=== PATIENT | male | born 1990 | race African-American/Black ===

== ENCOUNTER 2017-06-20 01:55 | Inpatient (IN) | payer OTHER ==
--- NOTE | 2017-06-20 02:37 | HP ---
COWS - Scale Resting Pulse: 1= [place] 81-100 Sweatin= Chills/Flushing Restless Observation: 1= Difficult to Sit Still Pupil Size: 1= Pupils >than Normal Bone or Joint Aches: 2= Severe Diffuse Aches Runny Nose/ Eye Tearin= Runny Nose/Eyes GI Upset > 30mins: 1= Stomach Cramp Tremor Observation: 1= Tremor [place], Not Seen Yawning Observation: 1= 1-2x During Session Anxiety or Irritability: 1=Feels Anxious/Irritable Goose Flesh Skin: 3=Piloerection COWS Score: 15 Admission ROS S - HPI Chief Complaint: WITHDRAWAL SYMPTOMS Allergies/Adverse Reactions: Allergies Allergy/AdvReac Type Severity Reaction Status Date / Time No Known Allergies Allergy Verified 02/17/16 01:37 History of Present Illness: 27 Y.O. MAN WITH AN EXTENSIVE HISTORY OF OPIATE DEPENDENCE IS HERE SEEKING DETOX. HE WAS LAST HERE ON 01/2016 FOR DETOX. HE REPORTS HIS LONGEST PERIOD CLEAN HAS BEEN 1 YEAR. Exam Limitations: No Limitations - Review of Systems Constitutional: Chills, Loss of Appetite, Unintentional Wgt. Loss EENT: reports: Tearing, Nose Congestion Respiratory: reports: Cough Cardiac: reports: No Symptoms Reported GI: reports: Diarrhea : reports: No Symptoms Reported Musculoskeletal: reports: Back Pain, Joint Pain Integumentary: reports: No Symptoms Reported Neuro: reports: Headache Endocrine: reports: No Symptoms Reported Hematology: reports: No Symptoms Reported Psychiatric: reports: Judgement Intact, Mood/Affect Appropiate, Orientated x3 Other Systems: Reviewed and Negative Patient History - Patient Medical History Hx Anemia: No Hx Asthma: No Hx Chronic Obstructive Pulmonary Disease (COPD): No Hx Cancer: No Hx Cardiac Disorders: No Hx Congestive Heart Failure: No Hx Hypertension: No Hx Hypercholesterolemia: No Hx Pacemaker: No HX Cerebrovascular Accident: No Hx Seizures: Yes Hx Dementia: No Hx Diabetes: No Hx Gastrointestinal Disorders: No Hx Liver Disease: No Hx Genitourinary Disorders: No Hx Sexually Transmitted Disorders: No Hx Renal Disease (ESRD): No Hx Thyroid Disease: No Hx Human Immunodeficiency Virus (HIV): No Hx Hepatitis C: No Hx Depression: Yes Hx Suicide Attempt: No Hx Bipolar Disorder: No Hx Schizophrenia: No - Patient Surgical History Past Surgical History: Yes Other Surgical History: ON RT. LEG - 16 YRS. AGO - PPD History Previous Implant?: Yes Date: 02/20/16 PPD to be Administered?: Yes - Reproductive History Patient is a Female of Child Bearing Age (11 -55 yrs old): No - Smoking Cessation Smoking history: Current every day smoker Have you smoked in the past 12 months: Yes Aproximately how many cigarettes per day: 20 Hx Chewing Tobacco Use: No Initiated information on smoking cessation: Yes 'Breaking Loose' booklet given: 06/20/17 - Substance & Tx. History Hx Alcohol Use: No Hx Substance Use: Yes Substance Use Type: Cocaine, Heroin, Marijuana - Substances Abused Heroin Route: Injection Frequency: Daily Amount used: 6 Age of first use: 27 Date of Last Use: 06/19/17 Cocaine Route: Inhalation Frequency: 1-3 times last 30 days Amount used: $20 Age of first use: 25 Date of Last Use: 06/09/17 Marijuana/Hashish Route: Smoking Frequency: Daily Amount used: $30 Age of first use: 18 Date of Last Use: 06/19/17 Family Disease History - Family Disease History Family History: Denies Admission Physical Exam [facility] - Vital Signs Vital Signs: Last Vital Signs Temp Pulse Resp BP Pulse Ox 99.6 F 98 H 16 135/84 06/20/17 02:46 06/20/17 02:46 06/20/17 02:46 06/20/17 02:46 - Physical General Appearance: Yes: Disheveled, Anxious HEENTM: Yes: Hearing grossly Normal, Other Respiratory: Yes: Chest Non-Tender, Lungs Clear, Normal Breath Sounds, No Respiratory Distress, No Accessory Muscle Use Neck: Yes: No masses,lesions,Nodules Breast: Yes: Breast Exam Deferred Cardiology: Yes: Regular Rhythm, Regular Rate Abdominal: Yes: Normal Bowel Sounds, Non Tender Genitourinary: Yes: Other (NO COMPLAINTS REPORTED) Back: Yes: Normal Inspection Musculoskeletal: Yes: full range of Motion, Gait Steady Extremities: Yes: Normal Capillary Refill, Normal Inspection, Normal Range of Motion, Non-Tender 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 NML intact, Motor Strength 5/5, Normal Mood/Affect , Normal Response Integumentary: Yes: Normal Color, Dry, Warm Lymphatic: Yes: Within Normal Limits - Diagnostic (1) Opioid dependence with withdrawal Current Visit: Yes Status: Chronic (2) Cocaine dependence, uncomplicated Current Visit: Yes Status: Chronic (3) Nicotine dependence Current Visit: Yes Status: Chronic Cleared for Admission [facility] - Detox or Rehab [facility] Level of Care: Medically Managed Detox Regimen/Protocol: Methadone [facility] Breath Alcohol Content Breath Alcohol Content: 0.009 Vital Signs - Vital Signs Vital Signs Refused: No Temperature: 99.6 F Temperature Source: Oral Pulse Rate: 98 Respiratory Rate: 16 Blood Pressure: 135/84 BP Location: Left Arm Blood Pressure Position: Sitting - Height Height: 5 ft 11 in - Weight Weight: 210 lb Weight Measurement Method: Stated by Patient Body Mass Index (BMI): 29.2 Urine Drug Screen - Control Is Test Valid: Yes - Results Drug Screen Negative: No Urine Drug Screen Results: THC-Marijuana, OPI-Opiates, BZO-Benzodiazepines
[2017-06-20 02:46] VITALS: BMI 29.2
[2017-06-20] MEDS ORDERED: LOPERAMIDE HCL 2 MG CAPSULE PO PRN (02:52)
[2017-06-20] MEDS ORDERED: P-EPHED 60MG/TRIPROLIDI 2.5MG TABLET PO PRN (02:52)
[2017-06-20] MEDS ORDERED: METHADONE HCL 10 MG TABLET (FOR DETOX USE ONLY) PO ONE ×3 (02:52→23:00)
[2017-06-20] MEDS ORDERED: MAGNESIUM CITRATE 300 ML BOTTLE PO PRN (02:52)
[2017-06-20] MEDS ORDERED: hydrOXYzine PAMOATE 50 MG CAPSULE (FP) PO PRN (02:52)
[2017-06-20] MEDS ORDERED: MAGNESIUM HYDROX 2400MG/30ML ORAL SUSPENSION 30 ML CUP PO PRN (02:52)
[2017-06-20] MEDS ORDERED: MAG HYDROX/AL HYDROX/SIMETH 30 ML UNIT-DOSE CUP PO PRN (02:52)
[2017-06-20] MEDS ORDERED: MENTHOL/PHENOL 1 EACH UD MM PRN (02:52)
[2017-06-20] MEDS ORDERED: ACETAMINOPHEN 325 MG TABLET (FP) PO PRN (02:52)
[2017-06-20] MEDS ORDERED: diphenhydrAMINE HCL 50 MG CAPSULE PO PRN (02:52)
[2017-06-20] MEDS ORDERED: guaiFENesin/D-METHORPHAN HB 10 ML UNIT-DOSE CUPS PO PRN (02:52)
[2017-06-20] MEDS: diazePAM 5 MG TABLET PO PRN ×4 (03:46→22:05)
[2017-06-20] MEDS: IBUPROFEN 400 MG TABLET (FP) PO PRN (03:47)
[2017-06-20] MEDS: metroNIDAZOLE 250 MG TABLET PO SCH ×3 (07:13→23:12)
[2017-06-20] MEDS: PRENATAL VITAMINS W/ FOLIC ACID TABLET (FP) PO SCH (10:14)
[2017-06-20 11:27] LABS: HIV 1 & 2 AB NEGATIVE; HIV 1 AGp24 NEGATIVE
[2017-06-20] MEDS ORDERED: FLU VACCINE QUAD 60 MCG/0.5 ML (MDV 17-18) IM ONE (12:00)
--- NOTE | 2017-06-20 12:57 | PN ---
[facility] Progress Note Note: PATIENT WAS ADMITTED FOR OPIOID DEPENDENCE ON METHADONE REGIMEN HAD DENTAL IMPLANT ON ANTIBIOTICS SWELLING OF RIGHT FACIAL AREA VISION OK MOVEMENT OF EYE BALL NO LIMITATION EKG NSR,NORMAL ECG CONTINUE DETOX,AMOXICILLIN 500 MGS PO TID
[2017-06-20] MEDS: CYCLOBENZAPRINE HCL 10 MG TABLET (FP) PO SCH ×2 (13:09→22:06)
[2017-06-20] MEDS: AMOXICILLIN 500 MG CAPSULE (FP) PO SCH ×2 (14:22→22:05)
[2017-06-20 17:52] LABS: URINE APPEARANCE SLCLOUDY; URINE BILIRUBIN NEGATIVE (NEGATIVE); URINE BLOOD NEGATIVE (NEGATIVE); URINE COLOR DKYELLOW; URINE GLUCOSE (UA) NEGATIVE (NEGATIVE); URINE KETONE NEGATIVE (NEGATIVE); URINE LEUK ESTERASE NEGATIVE (NEGATIVE); URINE NITRITE NEGATIVE (NEGATIVE); URINE PROTEIN NEGATIVE (NEGATIVE); URINE UROBILINOGEN NEGATIVE mg/dL (0.2-1.0)
--- NOTE | 2017-06-20 20:44 | EKG ---
Test Reason : Blood Pressure : / mmHG Vent. Rate : 074 BPM Atrial Rate : 074 BPM P-R Int : 164 ms QRS Dur : 088 ms QT Int : 394 ms P-R-T Axes : 070 062 050 degrees QTc Int : 437 ms NORMAL SINUS RHYTHM NORMAL ECG NO PREVIOUS ECGS AVAILABLE Confirmed by PRESLEY TRAN MD ([id number]) on 06/20/2017 8:44:40 PM Referred By: Confirmed By:PRESLEY TRAN MD
[2017-06-20] MEDS ORDERED: THIAMINE HCL 100 MG TABLET (FP) PO SCH (22:00)
[2017-06-21] MEDS: CYCLOBENZAPRINE HCL 10 MG TABLET (FP) PO SCH (05:42)
[2017-06-21] MEDS: AMOXICILLIN 500 MG CAPSULE (FP) PO SCH (05:43)
[2017-06-21] MEDS: diazePAM 5 MG TABLET PO PRN ×2 (05:44→10:06)
[2017-06-21] MEDS: IBUPROFEN 400 MG TABLET (FP) PO PRN (05:45)
[2017-06-21] MEDS: metroNIDAZOLE 250 MG TABLET PO SCH (07:01)
--- NOTE | 2017-06-21 07:42 | CONSULT ---
[facility] Psychiatric Consult - Data Date of interview: 06/21/17 Admission source: [facility] Identifying data: Thisis 27 years old male with history of DAYAN, Depression, with nop psychiatric hospitalization history , intoxicated with: Acocaine, Cannabis, Heroin, Xanax and Nicotine, Substance Abuse History: Urine Drug Screen Results: THC-Marijuana, OPI-Opiates, BZO-Benzodiazepines. - Smoking Cessation. Smoking history: Current every day smoker. Have you smoked in the past 12 months: Yes. Aproximately how many cigarettes per day: 20. Hx Chewing Tobacco Use: No. Initiated information on smoking cessation: Yes. 'Breaking Loose' booklet given: 06/20/17. - Substance & Tx. History. Hx Alcohol Use: No. Hx Substance Use: Yes. Substance Use Type : Cocaine, Heroin, Marijuana. - Substances Abused. Heroin. Route: Injection. Frequency: Daily. Amount used: 6. Age of first use: 27. Date of Last Use: 06/19/17. Cocaine. Route: Inhalation. Frequency: 1-3 times last 30 days. Amount used: $20. Age of first use: 25. Date of Last Use: 06/09/17. Marijuana/Hashish. Route: Smoking. Frequency: Daily. Amount used: $30. Age of first use: 18. Date of Last Use: 06/19/17 Medical History: Seizure disorder Psychiatric History: Patient reprots history of DAYAN, and Depression, reports taking prior eder admission: no medications. As per computer having hitory taking Lexapro 10mg poqd Physical/Sexual Abuse/Trauma History: Denies Additional Comment: Observation. Detox Unit Care Protocol. Urine Drug Screen Results: THC-Marijuana, OPI-Opiates, BZO-Benzodiazepines Mental Status Exam - Mental Status Exam Alert and Oriented to: Person Cognitive Function: Fair Patient Appearance: Well Groomed Mood: Apprehensive Patient Behavior: Cooperative Speech Pattern: Appropriate Voice Loudness: Mildly Soft/Quiet Thought Process: Goal Oriented Thought Disorder: Being Controlled Hallucinations: Denies Suicidal Ideation: Denies Homicidal Ideation: Denies Insight/Judgement: Fair Sleep: Difficulty falling asleep Appetite: Weight gain Muscle strength/Tone: Normal Gait/Station: Normal Additional Comments: Observation. Detox Unit Care Protocol Psychiatric Findings - Problem List ([place] 1, 2,3) (1) Cocaine dependence, uncomplicated Current Visit: Yes Status: Chronic (2) Nicotine dependence Current Visit: Yes Status: Chronic (3) Opioid dependence with withdrawal Current Visit: Yes Status: Chronic (4) DAYAN (generalized anxiety disorder) Current Visit: No Status: Acute (5) Sedative, hypnotic or anxiolytic dependence with withdrawal, uncomplicated Current Visit: No Status: Acute (6) Benzodiazepine dependence Current Visit: No Status: Chronic (7) Cannabis dependence Current Visit: No Status: Chronic (8) Heroin dependence Current Visit: No Status: Chronic (9) Opioid dependence Current Visit: No Status: Chronic Qualifiers: Substance use status: uncomplicated Qualified Code(s): F11.20 - Opioid dependence, uncomplicated; F11.20 - Opioid dependence, uncomplicated; F11.20 - Opioid dependence, uncomplicated (10) Panic attacks Current Visit: Yes Status: Acute - Initial Treatment Plan Initial Treatment Plan: Observation. Detox Unit Care Protocol
[2017-06-21 09:31] VITALS: BP 120/68; PULSE 66; TEMP 97.5
[2017-06-21] MEDS ORDERED: METHADONE HCL 10 MG TABLET (FOR DETOX USE ONLY) PO ONE (10:00)
[2017-06-21] MEDS: PRENATAL VITAMINS W/ FOLIC ACID TABLET (FP) PO SCH (10:06)
[2017-06-21 10:08] LABS: MCH 27.9 pg (25.7-33.7); MCHC 33.4 g/dl (32.0-35.9); MEAN CELL VOLUME 83.4 fl (80-96); MEAN PLT VOLUME 9.5 fl (7.5-11.1); PLATELET COUNT 203 K/MM3 (134-434); RDW 12.6 % (11.9-15.9); WHITE BLOOD COUNT 9.1 K/mm3 (4.0-10.0)
[2017-06-21 10:23] LABS: ALBUMIN 3.6 g/dl (3.4-5.0); ALK PHOS 73 U/L (45-117); ANION GAP 9 (8-16); BILIRUBIN,TOTAL 0.7 mg/dL (0.2-1.0); CALCIUM 8.9 mg/dL (8.5-10.1); CO2 30 mmol/L (21-32); CREATININE 0.9 mg/dL (0.7-1.3); GLUCOSE,RANDOM 83 mg/dL (74-106); SGOT/AST 18 U/L (15-37); SGPT/ALT 33 U/L (12-78); TOT PROT 6.9 g/dl (6.4-8.2)
--- NOTE | 2017-06-21 10:45 | PN ---
S COWS - Scale Resting Pulse: 0= [place] 80 or Below Sweatin=Flushed/Facial Moisture Restless Observation: 1= Difficult to Sit Still Pupil Size: 0= Normal to Room Light Bone or Joint Aches: 2= Severe Diffuse Aches Runny Nose/ Eye Tearin= Nasal Congestion GI Upset > 30mins: 0= None Tremor Observation of Outstretched Hands: 1= Tremor [place], Not Seen Yawning Observation: 2= >3x During Session Anxiety or Irritability: 2=Irritable/Anxious Goose Flesh Skin: 3=Piloerection COWS Score: 14 [facility] Progress Note (SOAP) Subjective: irritable agitation anxiety sweats interrupted sleep Objective: 06/21/17 10:41 Vital Signs Temperature 97.5 F L 06/21/17 09:31 Pulse Rate 66 06/21/17 09:31 Respiratory Rate 18 06/21/17 09:31 Blood Pressure 120/68 06/21/17 09:31 O2 Sat by Pulse Oximetry (%) Laboratory Tests 06/20/17 06/20/17 06/21/17 08:00 17:00 06:15 WBC 9.1 RBC 4.77 Hgb 13.3 Hct 39.8 MCV 83.4 MCH 27.9 MCHC 33.4 RDW 12.6 Plt Count 203 MPV 9.5 Sodium Potassium Chloride Carbon Dioxide Anion Gap BUN Creatinine Creat Clearance w eGFR Random Glucose Calcium Total Bilirubin AST ALT Alkaline Phosphatase Total Protein Albumin Urine Color Dkyellow Urine Appearance Slcloudy Urine pH 5.0 D Ur Specific [place] 1.025 Urine Protein Negative Urine Glucose (UA) Negative Urine Ketones Negative Urine Blood Negative Urine Nitrite Negative Urine Bilirubin Negative Urine Urobilinogen Negative HIV 1&2 Antibody Screen Negative HIV P24 Antigen Negative 06/21/17 06:15 WBC RBC Hgb Hct MCV MCH MCHC RDW Plt Count MPV Sodium 138 Potassium 4.1 Chloride 99 Carbon Dioxide 30 Anion Gap 9 BUN 12 D Creatinine 0.9 Creat Clearance w eGFR > 60 Random Glucose 83 Calcium 8.9 Total Bilirubin 0.7 D AST 18 D ALT 33 D Alkaline Phosphatase 73 Total Protein 6.9 Albumin 3.6 Urine Color Urine Appearance Urine pH Ur Specific [place] Urine Protein Urine Glucose (UA) Urine Ketones Urine Blood Urine Nitrite Urine Bilirubin Urine Urobilinogen HIV 1&2 Antibody Screen HIV P24 Antigen aaox3 ambulating no acute distress Assessment: 06/21/17 10:41 withdrawal sx Plan: continue detox increase fluids continue ABX as ordered
--- NOTE | 2017-06-21 11:49 | PN ---
[facility] Progress Note Note: pt states he has an appt with his dentist for implant; signed out AMA. pt refused to stay and complete detox. pt states he feels fine. no s/s of withdrawals at this time. pt received his detox medication prior to wanting to leave.
--- NOTE | 2017-06-21 11:51 | DS ---
[facility] Detox Discharge Summary Admission Date: 06/20/17 - History Present History: Cannabis Dependence, Cocaine Dependence, Opioid Dependence, Sedative Dependence - Physical Exam Results Vital Signs: Vital Signs Temperature 97.5 F L 06/21/17 09:31 Pulse Rate 66 06/21/17 09:31 Respiratory Rate 18 06/21/17 09:31 Blood Pressure 120/68 06/21/17 09:31 O2 Sat by Pulse Oximetry (%) - Treatment Hospital Course: Responded well, Discharged Condition Good - Medication Discharge Medications: Ambulatory Orders Escitalopram Oxalate [Lexapro -] 10 mg PO DAILY #30 tablet 02/17/16 - Diagnosis (1) Dental abscess Current Visit: Yes Status: Acute (2) Panic attacks Current Visit: Yes Status: Suspected (3) Cocaine dependence, uncomplicated Current Visit: Yes Status: Chronic (4) Nicotine dependence Current Visit: Yes Status: Chronic Qualifiers: Nicotine product type: cigarettes Substance use status: uncomplicated Qualified Code(s): F17.210 - Nicotine dependence, cigarettes, uncomplicated; F17.210 - Nicotine dependence, cigarettes, uncomplicated (5) Opioid dependence with withdrawal Current Visit: Yes Status: Chronic (6) DAYAN (generalized anxiety disorder) Current Visit: No Status: Acute (7) Sedative, hypnotic or anxiolytic dependence with withdrawal, uncomplicated Current Visit: Yes Status: Chronic (8) Cannabis dependence Current Visit: Yes Status: Chronic (9) Depression Current Visit: No Status: Chronic Qualifiers: Major depression episode severity: unspecified (10) Insomnia Current Visit: No Status: Chronic Qualifiers: Insomnia type: unspecified Qualified Code(s): G47.00 - Insomnia, unspecified; G47.00 - Insomnia, unspecified (11) Opioid dependence Current Visit: No Status: Chronic Qualifiers: Substance use status: uncomplicated Qualified Code(s): F11.20 - Opioid dependence, uncomplicated; F11.20 - Opioid dependence, uncomplicated; F11.20 - Opioid dependence, uncomplicated - AMA Did Patient Leave Against Medical Advice: Yes (i need to go to my dentist)
[2017-06-21] MEDS ORDERED: QUEtiapine FUMARATE 100 MG TABLET (FP) PO SCH (22:00)
[2017-06-21] MEDS ORDERED: MIRTAZAPINE 15 MG TABLET (FP) PO SCH (22:00)
[2017-06-22] MEDS ORDERED: METHADONE HCL 5 MG TABLET (FOR DETOX USE ONLY) PO ONE (10:00)
[2017-06-23] MEDS ORDERED: METHADONE HCL 5 MG TABLET (FOR DETOX USE ONLY) PO ONE (10:00)
[2017-06-24] MEDS ORDERED: METHADONE HCL 10 MG TABLET (FOR DETOX USE ONLY) PO ONE (10:00)
[2017-06-25] MEDS ORDERED: METHADONE HCL 5 MG TABLET (FOR DETOX USE ONLY) PO ONE (06:00)
== END 2017-06-21 11:48 | disposition left against medical advice (07) | DRG 770 ==
LOC: YASAS 01:55 → Y6N 02:00
PROVIDERS: ADMIT Internal Medicine; ATTEND Internal Medicine Addiction Medicine
PROC: HZ2ZZZZ Detoxification Services for Substance Abuse Treatment (ICD-10-PCS; principal; 2017-06-20)
DX: F11.23 Opioid dependence with withdrawal (principal); F13.230 Sedative, hypnotic or anxiolytic dependence with withdrawal, uncomplicated; F14.20 Cocaine dependence, uncomplicated; F12.20 Cannabis dependence, uncomplicated; F17.210 Nicotine dependence, cigarettes, uncomplicated; F41.0 Panic disorder [episodic paroxysmal anxiety]; F41.1 Generalized anxiety disorder; F32.9 Major depressive disorder, single episode, unspecified; G47.00 Insomnia, unspecified; K04.7 Periapical abscess without sinus; Z86.69 Personal history of other diseases of the nervous system and sense organs
CPT/HCPCS: 36415; 80053; 81003; 85027; 86593; 86803; 87389; 90688; 93005; 93010; G0008

== ENCOUNTER 2017-10-20 20:16 | Inpatient (IN) | payer OTHER ==
[2017-10-20 23:49] VITALS: BMI 28.5
--- NOTE | 2017-10-21 00:24 | HP ---
COWS - Scale Resting Pulse: 1= [place] 81-100 Sweatin=Flushed/Facial Moisture Restless Observation: 1= Difficult to Sit Still Pupil Size: 1= Pupils >than Normal Bone or Joint Aches: 4=Acute Joint/Muscle Pain Runny Nose/ Eye Tearin= Runny Nose/Eyes GI Upset > 30mins: 1= Stomach Cramp Tremor Observation: 2= Slight Tremor Visible Yawning Observation: 1= 1-2x During Session Anxiety or Irritability: 4=Extreme Anxiety Goose Flesh Skin: 0=Smooth Skin COWS Score: 19 Admission ROS S - [facility] Chief Complaint: Opioid withdrawal symptoms Allergies/Adverse Reactions: Allergies Allergy/AdvReac Type Severity Reaction Status Date / Time No Known Allergies Allergy Verified 10/21/17 01:01 History of Present Illness: 27 years old with a 5 years history of heroin dependency is admitted to detox. Patient has been admitted to detox twice in [facility] and left AMA in previous admissions. He reports insignificant period of sobriety. Patient has past medical history of seizures and denies suicidal ideation at this time. Exam Limitations: No Limitations - Ebola screening Have you traveled outside of the country in the last 21 days: No Have you had contact with anyone from an Ebola affected area: No Have you been sick,other than usual withdrawal symptoms: No Do you have a fever: No - Review of Systems Constitutional: Chills, Loss of Appetite, Malaise, Night Sweats, Changes in sleep EENT: reports: Nose Congestion, Sinus Pressure Respiratory: reports: No Symptoms reported Cardiac: reports: No Symptoms Reported GI: reports: Nausea, Poor Appetite, Poor Fluid Intake, Abdominal cramping : reports: No Symptoms Reported Musculoskeletal: reports: Back Pain, Joint Pain, Muscle Pain, Muscle Weakness, Neck Pain Integumentary: reports: Flushing Neuro: reports: Headache, Tingling, Tremors Endocrine: reports: No Symptoms Reported Hematology: reports: No Symptoms Reported Psychiatric: reports: Mood/Affect Appropiate, Orientated x3, Agitated, Anxious Other Systems: Reviewed and Negative Patient History - Patient Medical History Hx Anemia: No Hx Asthma: No Hx Chronic Obstructive Pulmonary Disease (COPD): No Hx Cancer: No Hx Cardiac Disorders: No Hx Congestive Heart Failure: No Hx Hypertension: No Hx Hypercholesterolemia: No Hx Pacemaker: No HX Cerebrovascular Accident: No Hx Seizures: Yes Hx Dementia: No Hx Diabetes: No Hx Gastrointestinal Disorders: No Hx Liver Disease: No Hx Genitourinary Disorders: No Hx Sexually Transmitted Disorders: No Hx Renal Disease (ESRD): No Hx Thyroid Disease: No Hx Human Immunodeficiency Virus (HIV): No (Negative 2016) Hx Hepatitis C: No (Negative 2017) Hx Depression: No Hx Suicide Attempt: No (Denies suicidal ideation) Hx Bipolar Disorder: No Hx Schizophrenia: No - Patient Surgical History Past Surgical History: Yes Hx Neurologic Surgery: No Hx Cataract Extraction: No Hx Cardiac Surgery: No Hx Lung Surgery: No Hx Abdominal Surgery: No Hx Appendectomy: No Hx Cholecystectomy: No Hx Genitourinary Surgery: No Hx Orthopedic Surgery: Yes Other Surgical History: ON RT. LEG - 16 YRS. AGO Anesthesia Reaction: No - PPD History Previous Implant?: Yes Implanted On Prior [facility] Admission?: Yes Date: 06/22/17 (Not read. AMA) PPD to be Administered?: Yes - Reproductive History Patient is a Female of Child Bearing Age (11 -55 yrs old): No (MALE) - Smoking Cessation Smoking history: Current every day smoker Have you smoked in the past 12 months: Yes Aproximately how many cigarettes per day: 20 Hx Chewing Tobacco Use: No Initiated information on smoking cessation: Yes 'Breaking Loose' booklet given: 10/21/17 - Substance & Tx. History Hx Alcohol Use: No Hx Substance Use: Yes Substance Use Type: Cocaine, Heroin, Marijuana Hx Substance Use Treatment: Yes ([facility]) - Substances Abused Heroin Route: Injection Frequency: Daily Amount used: 10 bags Age of first use: 25 Date of Last Use: 10/20/17 Cocaine Route: Injection Frequency: Daily Amount used: $20 Age of first use: 22 Date of Last Use: 10/21/17 Family Disease History - Family Disease History Family History: Denies Admission Physical Exam [facility] - Vital Signs Vital Signs: Vital Signs - 24 hr 10/20/17 23:48 Temperature 98 F Pulse Rate 90 Respiratory 18 Rate Blood Pressure 110/70 - Physical General Appearance: Yes: Moderate Distress HEENTM: Yes: EOMI, Normal ENT Inspection, Normal Voice, WAQAS Respiratory: Yes: Lungs Clear, Normal Breath Sounds, No Respiratory Distress Neck: Yes: Supple Breast: Yes: Breast Exam Deferred Cardiology: Yes: Regular Rhythm, Regular Rate, S1, S2 Abdominal: Yes: Normal Bowel Sounds, Soft Genitourinary: Yes: Within Normal Limits Back: Yes: Normal Inspection Extremities: Yes: Tremors Neurological: Yes: Alert, Normal Mood/Affect, Normal Response Integumentary: Yes: Dry Lymphatic: Yes: Within Normal Limits - Diagnostic (1) Cannabis dependence Current Visit: Yes Status: Chronic (2) Nicotine dependence Current Visit: Yes Status: Chronic Qualifiers: Nicotine product type: cigarettes Substance use status: uncomplicated Qualified Code(s): F17.210 - Nicotine dependence, cigarettes, uncomplicated (3) Opioid dependence with withdrawal Current Visit: Yes Status: Chronic (4) Sedative, hypnotic or anxiolytic dependence with withdrawal, uncomplicated Current Visit: Yes Status: Chronic (5) Seizures Current Visit: Yes Status: Chronic Cleared for Admission [facility] - Detox or Rehab [facility] Level of Care: Medically Managed Detox Regimen/Protocol: Methadone/Valium [facility] Breath Alcohol Content Breath Alcohol Content: 0 Urine Drug Screen - Results Drug Screen Negative: No Urine Drug Screen Results: THC-Marijuana, MACY-Cocaine, OPI-Opiates, BZO- Benzodiazepines, OXY-Oxycodone
[2017-10-21] MEDS ORDERED: ACETAMINOPHEN 325 MG TABLET (FP) PO PRN (00:48)
[2017-10-21] MEDS ORDERED: P-EPHED 60MG/TRIPROLIDI 2.5MG TABLET PO PRN (00:48)
[2017-10-21] MEDS ORDERED: IBUPROFEN 400 MG TABLET (FP) PO PRN (00:48)
[2017-10-21] MEDS ORDERED: MENTHOL/PHENOL 1 EACH UD MM PRN (00:48)
[2017-10-21] MEDS ORDERED: LOPERAMIDE HCL 2 MG CAPSULE PO PRN (00:48)
[2017-10-21] MEDS ORDERED: guaiFENesin/D-METHORPHAN HB 10 ML UNIT-DOSE CUPS PO PRN (00:48)
[2017-10-21] MEDS ORDERED: MAG HYDROX/AL HYDROX/SIMETH 30 ML UNIT-DOSE CUP PO PRN (00:48)
[2017-10-21] MEDS ORDERED: diazePAM 5 MG TABLET PO ONE (00:48)
[2017-10-21] MEDS ORDERED: METHADONE HCL 10 MG TABLET (FOR DETOX USE ONLY) PO ONE ×3 (00:48→23:00)
[2017-10-21] MEDS ORDERED: MAGNESIUM HYDROX 2400MG/30ML ORAL SUSPENSION 30 ML CUP PO PRN (00:48)
[2017-10-21] MEDS ORDERED: diazePAM 5 MG TABLET PO PRN (00:48)
[2017-10-21] MEDS ORDERED: MAGNESIUM CITRATE 300 ML BOTTLE PO PRN (00:48)
[2017-10-21] MEDS ORDERED: NICOTINE POLACRILEX 2 MG GUM BC PRN (00:48)
[2017-10-21] MEDS: diazePAM 5 MG TABLET PO SCH ×2 (07:16→14:21)
[2017-10-21] MEDS ORDERED: PRENATAL VITAMINS W/ FOLIC ACID TABLET (FP) PO SCH (10:00)
[2017-10-21] MEDS ORDERED: NICOTINE 14 MG/24 HOURS TOPICAL PATCH TD SCH (10:00)
--- NOTE | 2017-10-21 12:33 | PN ---
S CIWA - CIWA Score Nausea/Vomitin-No Nausea/No Vomiting Muscle Tremors: 2 Anxiety: 3 Agitation: 2 Paroxysmal Sweats: 3 Orientation: 0-Oriented Tacttile Disturbances: 2-Mild Itch/Numbness/Burn Auditory Disturbances: 0-None Visual Disturbances: 2-Mild Sensitivity Headache: 3-Moderate CIWA-Ar Total Score: 17 [facility]HS COWS - Scale Resting Pulse: 1= [place] 81-100 Sweatin= Chills/Flushing Restless Observation: 1= Difficult to Sit Still Pupil Size: 0= Normal to Room Light Bone or Joint Aches: 0= None Runny Nose/ Eye Tearin= Nasal Congestion GI Upset > 30mins: 0= None Tremor Observation of Outstretched Hands: 2= Slight Tremor Visible Yawning Observation: 2= >3x During Session Anxiety or Irritability: 2=Irritable/Anxious Goose Flesh Skin: 3=Piloerection COWS Score: 13 [facility] Progress Note (SOAP) Subjective: Interrupted Sleep, Fatigue, H/A, Sweating. Objective: PT. A & O X 3, OBSERVED AMBULATING ON UNIT. NO ACUTE DISTRESS. 10/21/17 12:31 Vital Signs Temperature 99.0 F 10/21/17 11:08 Pulse Rate 87 10/21/17 11:08 Respiratory Rate 18 10/21/17 11:08 Blood Pressure 118/74 10/21/17 11:08 O2 Sat by Pulse Oximetry (%) ADMISSION LABS RESULTS PENDING. 10/21/17 12:32 Assessment: 10/21/17 12:32 WITHDRAWAL SYMPTOMS. Plan: CONTINUE DETOX. INCREASE DAILY PO FLUID INTAKE.
--- NOTE | 2017-10-21 14:54 | EKG ---
Test Reason : Blood Pressure : / mmHG Vent. Rate : 069 BPM Atrial Rate : 069 BPM P-R Int : 170 ms QRS Dur : 096 ms QT Int : 432 ms P-R-T Axes : 038 067 060 degrees QTc Int : 462 ms NORMAL SINUS RHYTHM NORMAL ECG WHEN COMPARED WITH ECG OF 20-JUN-2017 02:10, NO SIGNIFICANT CHANGE WAS FOUND Confirmed by ADAM WISE MD ([id number]) on 10/21/2017 2:53:48 PM Referred By: Confirmed By:ADAM WISE MD
[2017-10-21 17:33] VITALS: BP 114/65; PULSE 67; TEMP 98.4
--- NOTE | 2017-10-21 18:04 | PN ---
S Progress Note Note: daniel refusing to compelte detox as ordered at this time d/w nurse and counselor risk of not completing detox as ordered including overdose and . patient is signing out ama.
--- NOTE | 2017-10-21 18:07 | DS ---
[facility] Detox Discharge Summary Admission Date: 10/21/17 Discharge Date: 10/21/17 - History Present History: Cannabis Dependence, Cocaine Dependence, Opioid Dependence, Sedative Dependence Additional Comments: pateint refusing to stay signed out AMA after discussing risks with nursing and counseling staff, including overdose and Pertinent Past History: withdrawal sx, anxiety, depression, insomnia, seizures, nicotine dependence - Physical Exam Results Vital Signs: Vital Signs Temperature 98.4 F 10/21/17 17:33 Pulse Rate 67 10/21/17 17:33 Respiratory Rate 18 10/21/17 17:33 Blood Pressure 114/65 10/21/17 17:33 O2 Sat by Pulse Oximetry (%) patient refused labwork Pertinent Admission Physical Exam Findings: withdrawal sx - Treatment Hospital Course: Detox Protocol Followed Patient has Accepted a Rehab Referral to: no - Medication Discharge Medications: Ambulatory Orders NK [No Known Home Medication] 10/21/17 - Diagnosis (1) Opioid dependence with withdrawal Current Visit: Yes Status: Acute (2) Sedative, hypnotic or anxiolytic dependence with withdrawal, uncomplicated Current Visit: Yes Status: Acute (3) Cannabis dependence Current Visit: Yes Status: Chronic (4) Nicotine dependence Current Visit: Yes Status: Chronic Qualifiers: Nicotine product type: cigarettes Substance use status: uncomplicated Qualified Code(s): F17.210 - Nicotine dependence, cigarettes, uncomplicated (5) Seizures Current Visit: Yes Status: Chronic (6) Dental abscess Current Visit: No Status: Acute (7) Cocaine dependence, uncomplicated Current Visit: No Status: Chronic - AMA Did Patient Leave Against Medical Advice: Yes
[2017-10-21] MEDS ORDERED: THIAMINE HCL 100 MG TABLET (FP) PO SCH (22:00)
[2017-10-22] MEDS ORDERED: METHADONE HCL 10 MG TABLET (FOR DETOX USE ONLY) PO SCH (10:00)
[2017-10-23] MEDS ORDERED: METHADONE HCL 5 MG TABLET (FOR DETOX USE ONLY) PO SCH (10:00)
[2017-10-23] MEDS ORDERED: diazePAM 5 MG TABLET PO SCH (10:00)
[2017-10-25] MEDS ORDERED: diazePAM 5 MG TABLET PO SCH (10:00)
[2017-10-25] MEDS ORDERED: METHADONE HCL 10 MG TABLET (FOR DETOX USE ONLY) PO SCH (10:00)
[2017-10-26] MEDS ORDERED: METHADONE HCL 5 MG TABLET (FOR DETOX USE ONLY) PO SCH (06:00)
== END 2017-10-21 18:30 | disposition left against medical advice (07) | DRG 770 ==
LOC: YASAS 20:16 → Y3N 10-21 00:04
PROVIDERS: ADMIT Internal Medicine; ATTEND Internal Medicine
PROC: HZ2ZZZZ Detoxification Services for Substance Abuse Treatment (ICD-10-PCS; principal; 2017-10-21)
DX: F11.23 Opioid dependence with withdrawal (principal); F13.230 Sedative, hypnotic or anxiolytic dependence with withdrawal, uncomplicated; F14.20 Cocaine dependence, uncomplicated; F12.20 Cannabis dependence, uncomplicated; F17.210 Nicotine dependence, cigarettes, uncomplicated; G40.909 Epilepsy, unspecified, not intractable, without status epilepticus; K04.7 Periapical abscess without sinus
CPT/HCPCS: 36415; 86803; 93005; 93010

== ENCOUNTER 2018-02-15 15:45 | Inpatient (IN) | payer OTHER ==
[2018-02-15 19:10] VITALS: BMI 26.4
--- NOTE | 2018-02-15 21:27 | HP ---
COWS - Scale Resting Pulse: 0= [place] 80 or Below Sweatin=Flushed/Facial Moisture Restless Observation: 1= Difficult to Sit Still Pupil Size: 1= Pupils >than Normal Bone or Joint Aches: 1= Mild Discomfort Runny Nose/ Eye Tearin= Constantly Teary/Runny GI Upset > 30mins: 2= Nausea/Diarrhea Tremor Observation: 4= Gross Tremor/Twitching Yawning Observation: 2= >3x During Session Anxiety or Irritability: 2=Irritable/Anxious Goose Flesh Skin: 0=Smooth Skin COWS Score: 19 Admission ROS S - HPI Chief Complaint: C/O WITHDRAWAL SX'S FROM OPIOID DEPENDENCE. SEEKING DETOX. Allergies/Adverse Reactions: Allergies Allergy/AdvReac Type Severity Reaction Status Date / Time No Known Allergies Allergy Verified 10/21/17 01:01 History of Present Illness: 27 Y.O. MALE WITH LONG HX/O OPIOID AND COCAINE DEPENDENCE HERE FOR DETOX. CLIENT IS KNOWN TO THIS PROGRAM. SELF REFERRED. LAST 3 ADMISSIONS SIGNED OUT AMA WITHIN 24 HOURS. D/W CLIENT ABOUT COMPLIANCE AND COMPLETING TXMENT . CLIENT VERBALIZED UNDERSTANDING. REPORTS LONGEST LEAN TIME 2 MONTHS SELF SUSTAINED. PMHX: DENIES PSYCH: DENIES Exam Limitations: No Limitations - Ebola screening Have you traveled outside of the country in the last 21 days: No Have you had contact with anyone from an Ebola affected area: No Have you been sick,other than usual withdrawal symptoms: No Do you have a fever: No - Review of Systems Constitutional: Chills, Loss of Appetite, Night Sweats, Changes in sleep, Unintentional Wgt. Loss EENT: reports: Recent change in vision (WEARS CORRECTIVE LENSES), Nose Congestion (RUNNY NOSE) Respiratory: reports: No Symptoms reported Cardiac: reports: No Symptoms Reported GI: reports: Diarrhea, Poor Appetite, Poor Fluid Intake : reports: No Symptoms Reported Musculoskeletal: reports: Joint Pain Integumentary: reports: No Symptoms Reported Neuro: reports: Seizure (R/T DRUG WITHDRAWAL) Endocrine: reports: No Symptoms Reported Hematology: reports: No Symptoms Reported Psychiatric: reports: No Sypmtoms Reported Other Systems: Reviewed and Negative Patient History - Patient Medical History Hx Anemia: No Hx Asthma: No Hx Chronic Obstructive Pulmonary Disease (COPD): No Hx Cancer: No Hx Cardiac Disorders: No Hx Congestive Heart Failure: No Hx Hypertension: No Hx Hypercholesterolemia: No Hx Pacemaker: No HX Cerebrovascular Accident: No Hx Seizures: Yes (R/T DRUG WITHDRAWAL; LAST 3 YEARS AGO) Hx Dementia: No Hx Diabetes: No Hx Gastrointestinal Disorders: No Hx Liver Disease: No Hx Genitourinary Disorders: No Hx Sexually Transmitted Disorders: No Hx Renal Disease (ESRD): No Hx Thyroid Disease: No Hx Human Immunodeficiency Virus (HIV): No Hx Hepatitis C: No Hx Depression: No Hx Suicide Attempt: No Hx Bipolar Disorder: No Hx Schizophrenia: No Other Medical History: DENIES - Patient Surgical History Past Surgical History: Yes Hx Neurologic Surgery: No Hx Cataract Extraction: No Hx Cardiac Surgery: No Hx Lung Surgery: No Hx Breast Surgery: No Hx Breast Biopsy: No Hx Abdominal Surgery: No Hx Appendectomy: No Hx Cholecystectomy: No Hx Genitourinary Surgery: No Hx Section: No Hx Orthopedic Surgery: Yes Other Surgical History: ON RT. LEG - 16 YRS. AGO Anesthesia Reaction: No - PPD History Previous Implant?: Yes Documented Results: Negative w/proof Implanted On Prior [facility] Admission?: Yes Date: 06/22/17 ([place]) PPD to be Administered?: No - Smoking Cessation Smoking history: Current every day smoker Have you smoked in the past 12 months: Yes Aproximately how many cigarettes per day: 10 Cigars Per Day: 0 Hx Chewing Tobacco Use: No Initiated information on smoking cessation: Yes 'Breaking Loose' booklet given: 02/15/18 - Substance & Tx. History Hx Alcohol Use: No Hx Substance Use: Yes Substance Use Type: Cocaine, Heroin, Marijuana Hx Substance Use Treatment: Yes ([facility]) - Substances Abused HEROIN Route: Injection Frequency: Daily Amount used: 10 BAGS Age of first use: 26 Date of Last Use: 02/14/18 COCAINE Route: Injection Frequency: 1-2 times per week Amount used: 1 GM Age of first use: 26 Date of Last Use: 02/11/18 THC Route: Smoking Frequency: 3-6 times per week Amount used: 20 BAG Age of first use: 15 Date of Last Use: 02/12/18 Family Disease History - Family Disease History Family History: Denies Admission Physical Exam BHS - Vital Signs Vital Signs: Vital Signs - 24 hr 02/15/18 18:56 Temperature 98.5 F Pulse Rate 76 Respiratory 18 Rate Blood Pressure 143/62 - Physical General Appearance: Yes: Appropriately Dressed, Moderate Distress, Tremorous HEENTM: Yes: EOMI, Normocephalic, Normal Voice, WAQAS, Pharynx Normal, Other ( POOE DENTITION MISSING TOP TEETH) Respiratory: Yes: Chest Non-Tender, Lungs Clear, Normal Breath Sounds, No Respiratory Distress, No Accessory Muscle Use Neck: Yes: No masses,lesions,Nodules, Supple, Trachea in good position Breast: Yes: Breast Exam Deferred Cardiology: Yes: Regular Rhythm, Regular Rate, S1, S2 Abdominal: Yes: Normal Bowel Sounds, Non Tender, Soft Genitourinary: Yes: Within Normal Limits (NO C/O) Back: Yes: Normal Inspection Musculoskeletal: Yes: full range of Motion, Gait Steady Extremities: Yes: Normal Capillary Refill, Normal Range of Motion, Non-Tender, Tremors, Pedal Edema (BLE 1 PLUS EDEMA) Neurological: Yes: Alert, Motor Strength 5/5 Integumentary: Yes: Normal Color, Warm, Track Head Lymphatic: Yes: Within Normal Limits - Diagnostic (1) Drug withdrawal seizure Current Visit: Yes Status: Suspected Qualifiers: Complication of substance-induced condition: with unspecified complication Qualified Code(s): F19.239 - Other psychoactive substance dependence with withdrawal, unspecified; R56.9 - Unspecified convulsions (2) Edema, lower extremity Current Visit: Yes Status: Acute (3) Opioid dependence with withdrawal Current Visit: Yes Status: Acute (4) Cannabis dependence Current Visit: Yes Status: Chronic (5) Cocaine dependence, uncomplicated Current Visit: Yes Status: Chronic (6) Depression Current Visit: Yes Status: Suspected Qualifiers: Major depression episode severity: unspecified (7) Insomnia Current Visit: Yes Status: Suspected Qualifiers: Insomnia type: unspecified Qualified Code(s): G47.00 - Insomnia, unspecified (8) Nicotine dependence Current Visit: Yes Status: Chronic Qualifiers: Nicotine product type: cigarettes Substance use status: uncomplicated Qualified Code(s): F17.210 - Nicotine dependence, cigarettes, uncomplicated Cleared for Admission S - Detox or Rehab [facility] Level of Care: Medically Managed Detox Regimen/Protocol: Methadone Claeared for Rehab Admission: No S Breath Alcohol Content Breath Alcohol Content: 0 Urine Drug Screen - Results Drug Screen Negative: No Urine Drug Screen Results: THC-Marijuana, MACY-Cocaine, OPI-Opiates, OXY- Oxycodone
[2018-02-15] MEDS ORDERED: ACETAMINOPHEN 325 MG TABLET (FP) PO PRN (21:31)
[2018-02-15] MEDS ORDERED: P-EPHED 60MG/TRIPROLIDI 2.5MG TABLET PO PRN (21:31)
[2018-02-15] MEDS ORDERED: guaiFENesin/D-METHORPHAN HB 10 ML UNIT-DOSE CUPS PO PRN (21:31)
[2018-02-15] MEDS ORDERED: IBUPROFEN 400 MG TABLET (FP) PO PRN (21:31)
[2018-02-15] MEDS ORDERED: MENTHOL/PHENOL 1 EACH UD MM PRN (21:31)
[2018-02-15] MEDS ORDERED: LOPERAMIDE HCL 2 MG CAPSULE PO PRN (21:31)
[2018-02-15] MEDS ORDERED: MAG HYDROX/AL HYDROX/SIMETH 30 ML UNIT-DOSE CUP PO PRN (21:31)
[2018-02-15] MEDS ORDERED: hydrOXYzine PAMOATE 50 MG CAPSULE (FP) PO PRN (21:31)
[2018-02-15] MEDS ORDERED: MAGNESIUM CITRATE 300 ML BOTTLE PO PRN (21:31)
[2018-02-15] MEDS ORDERED: MAGNESIUM HYDROX 2400MG/30ML ORAL SUSPENSION 30 ML CUP PO PRN (21:31)
[2018-02-15] MEDS ORDERED: METHADONE HCL 10 MG TABLET (FOR DETOX USE ONLY) PO ONE ×2 (21:45→23:00)
[2018-02-16] MEDS: diazePAM 5 MG TABLET PO PRN ×4 (00:47→22:24)
[2018-02-16] MEDS: THIAMINE HCL 100 MG TABLET (FP) PO SCH ×2 (00:59→22:24)
[2018-02-16 06:55] LABS: URINE APPEARANCE SLCLOUDY; URINE BILIRUBIN NEGATIVE (<2.0 mg/dL); URINE COLOR AMBER; URINE GLUCOSE (UA) NEGATIVE (NEGATIVE); URINE KETONE NEGATIVE (NEGATIVE); URINE LEUK ESTERASE NEGATIVE (NEGATIVE); URINE NITRITE NEGATIVE (NEGATIVE); URINE PROTEIN NEGATIVE (NEGATIVE)
[2018-02-16] MEDS ORDERED: METHADONE HCL 10 MG TABLET (FOR DETOX USE ONLY) PO ONE (10:00)
--- NOTE | 2018-02-16 10:24 | CONSULT ---
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 Patient with hiustory of multiple AMA discharges. Substance Abuse History: - Smoking Cessation. Smoking history: Current every day smoker. Have you smoked in the past 12 months: Yes. Aproximately how many cigarettes per day: 10. Cigars Per Day: 0. Hx Chewing Tobacco Use: No. Initiated information on smoking cessation: Yes. 'Breaking Loose' booklet given : 02/15/18. - Substance & Tx. History. Hx Alcohol Use: No. Hx Substance Use: Yes. Substance Use Type: Cocaine, Heroin, Marijuana. Hx Substance Use Treatment: Yes ([facility]). - Substances Abused. HEROIN. Route: Injection. Frequency: Daily. Amount used: 10 BAGS. Age of first use: 26. Date of Last Use: 02/14/18. COCAINE. Route: Injection. Frequency: 1-2 times per week. Amount used: 1 GM. Age of first use: 26. Date of Last Use: 02/11/18. THC. Route: Smoking. Frequency: 3-6 times per week. Amount used: 20 BAG. Age of first use: 15. Date of Last Use: 02/12/18 Medical History: Denies significant medical issues Psychiatric History: DAYAN, Panic disorder, Anxiety issues. Reports no medications taking prior to admission Physical/Sexual Abuse/Trauma History: Denies Additional Comment: Observation. Detox Unit Care Protocol Mental Status Exam - Mental Status Exam Alert and Oriented to: Person Cognitive Function: Fair Patient Appearance: Unkempt Mood: Anxious Affect: Mood Congruent Patient Behavior: Cooperative Speech Pattern: Appropriate Voice Loudness: Normal Thought Process: Goal Oriented Thought Disorder: Being Controlled Hallucinations: Denies Suicidal Ideation: Denies Homicidal Ideation: Denies Insight/Judgement: Fair Sleep: Difficulty falling asleep Appetite: Fair Muscle strength/Tone: Normal Gait/Station: Normal Additional Comments: Observation. Detox Unit Care Protocol Psychiatric Findings - Problem List ([place] 1, 2,3) (1) Opioid dependence with withdrawal Current Visit: Yes Status: Acute (2) Cannabis dependence Current Visit: Yes Status: Chronic (3) Cocaine dependence, uncomplicated Current Visit: Yes Status: Chronic (4) Nicotine dependence Current Visit: Yes Status: Chronic Qualifiers: Nicotine product type: cigarettes Substance use status: uncomplicated Qualified Code(s): F17.210 - Nicotine dependence, cigarettes, uncomplicated (5) Drug withdrawal seizure Current Visit: Yes Status: Suspected Qualifiers: Complication of substance-induced condition: with unspecified complication Qualified Code(s): F19.239 - Other psychoactive substance dependence with withdrawal, unspecified; R56.9 - Unspecified convulsions (6) DAYAN (generalized anxiety disorder) Current Visit: No Status: Acute (7) Opioid dependence Current Visit: No Status: Chronic Qualifiers: Substance use status: uncomplicated Qualified Code(s): F11.20 - Opioid dependence, uncomplicated (8) Panic attacks Current Visit: No Status: Suspected - Initial Treatment Plan Initial Treatment Plan: Observation. Detox Unit Care Protocol
[2018-02-16 10:41] LABS: HEMATOCRIT 37.9 % (35.4-49); HEMOGLOBIN 12.6 GM/dL (11.7-16.9); MCHC 33.2 g/dl (32.0-35.9); MEAN CELL VOLUME 81.3 fl (80-96); PLATELET COUNT 259 K/MM3 (134-434); RBC 4.65 M/mm3 (4.00-5.60); RDW 13.6 % (11.9-15.9); WHITE BLOOD COUNT 7.2 K/mm3 (4.0-10.0)
[2018-02-16] MEDS: PRENATAL VITAMINS W/ FOLIC ACID TABLET (FP) PO SCH (10:44)
[2018-02-16 10:45] LABS: ALBUMIN 3.2 g/dl (3.4-5.0); ANION GAP 7 (8-16); BLOOD UREA NITROGEN 10 mg/dL (7-18); CALCIUM 8.8 mg/dL (8.5-10.1); CHLORIDE 106 mmol/L (98-107); CO2 29 mmol/L (21-32); GLUCOSE,RANDOM 87 mg/dL (74-106); POTASSIUM 4.2 mmol/L (3.5-5.1); SGOT/AST 16 U/L (15-37); SGPT/ALT 21 U/L (12-78); SODIUM 142 mmol/L (136-145)
[2018-02-16] MEDS: NICOTINE 14 MG/24 HOURS TOPICAL PATCH TD SCH (10:45)
[2018-02-16 10:47] LABS: ALK PHOS 72 U/L (45-117); BILIRUBIN,TOTAL 0.2 mg/dL (0.2-1.0); TOT PROT 6.7 g/dl (6.4-8.2)
--- NOTE | 2018-02-16 11:41 | PN ---
S COWS - Scale Resting Pulse: 0= [place] 80 or Below Sweatin= Chills/Flushing Restless Observation: 3= Extraneous Movement Pupil Size: 1= Pupils >than Normal Bone or Joint Aches: 2= Severe Diffuse Aches Runny Nose/ Eye Tearin= Runny Nose/Eyes GI Upset > 30mins: 2= Nausea/Diarrhea Tremor Observation of Outstretched Hands: 1= Tremor [place], Not Seen Yawning Observation: 2= >3x During Session Anxiety or Irritability: 2=Irritable/Anxious Goose Flesh Skin: 0=Smooth Skin COWS Score: 16 S Progress Note (SOAP) Subjective: joint pain body ache tremor hot and cold trouble sleep at night slight edematous of both ankles Objective: 02/16/18 11:43 Vital Signs Temperature 97.9 F 02/16/18 10:01 Pulse Rate 72 02/16/18 10:01 Respiratory Rate 18 02/16/18 10:01 Blood Pressure 129/80 02/16/18 10:01 O2 Sat by Pulse Oximetry (%) Laboratory Last Values WBC 7.2 K/mm3 (4.0-10.0) 02/16/18 07:30 RBC 4.65 M/mm3 (4.00-5.60) 02/16/18 07:30 Hgb 12.6 GM/dL (11.7-16.9) 02/16/18 07:30 Hct 37.9 % (35.4-49) 02/16/18 07:30 MCV 81.3 fl (80-96) 02/16/18 07:30 MCH 27.0 pg (25.7-33.7) 02/16/18 07:30 MCHC 33.2 g/dl (32.0-35.9) 02/16/18 07:30 RDW 13.6 % (11.9-15.9) 02/16/18 07:30 Plt Count 259 K/MM3 (134-434) D 02/16/18 07:30 MPV 9.0 fl (7.5-11.1) 02/16/18 07:30 Sodium 142 mmol/L (136-145) 02/16/18 07:30 Potassium 4.2 mmol/L (3.5-5.1) 02/16/18 07:30 Chloride 106 mmol/L (98-107) 02/16/18 07:30 Carbon Dioxide 29 mmol/L (21-32) 02/16/18 07:30 Anion Gap 7 (8-16) L 02/16/18 07:30 BUN 10 mg/dL (7-18) 02/16/18 07:30 Creatinine 1.0 mg/dL (0.7-1.3) 02/16/18 07:30 Creat Clearance w eGFR > 60 (>60) 02/16/18 07:30 Random Glucose 87 mg/dL (74-106) 02/16/18 07:30 Calcium 8.8 mg/dL (8.5-10.1) 02/16/18 07:30 Total Bilirubin 0.2 mg/dL (0.2-1.0) D 02/16/18 07:30 AST 16 U/L (15-37) 02/16/18 07:30 ALT 21 U/L (12-78) D 02/16/18 07:30 Alkaline Phosphatase 72 U/L (45-117) 02/16/18 07:30 Total Protein 6.7 g/dl (6.4-8.2) 02/16/18 07:30 Albumin 3.2 g/dl (3.4-5.0) L 02/16/18 07:30 Urine Color [place] 02/15/18 23:23 Urine Appearance Slcloudy 02/15/18 23:23 Urine pH 5.0 (5.0-8.0) 02/15/18 23:23 Ur Specific [place] 1.030 (1.001-1.035) 02/15/18 23:23 Urine Protein Negative (NEGATIVE) 02/15/18 23:23 Urine Glucose (UA) Negative (NEGATIVE) 02/15/18 23:23 Urine Ketones Negative (NEGATIVE) 02/15/18 23:23 Urine Blood Negative (NEGATIVE) 02/15/18 23:23 Urine Nitrite Negative (NEGATIVE) 02/15/18 23:23 Urine Bilirubin Negative (<2.0 mg/dL) 02/15/18 23:23 Urine Urobilinogen 2.0 mg/dL (0.2-1.0) 02/15/18 23:23 Ur Leukocyte Esterase Negative (NEGATIVE) 02/15/18 23:23 lab noted Assessment: 02/16/18 11:44 withdrawal sx ankle edema Plan: continue detox elevation of both legs
--- NOTE | 2018-02-16 13:30 | EKG ---
Test Reason : Blood Pressure : / mmHG Vent. Rate : 058 BPM Atrial Rate : 058 BPM P-R Int : 184 ms QRS Dur : 096 ms QT Int : 452 ms P-R-T Axes : 078 081 076 degrees QTc Int : 443 ms SINUS BRADYCARDIA WITH SINUS ARRHYTHMIA OTHERWISE NORMAL ECG WHEN COMPARED WITH ECG OF 21-OCT-2017 01:43, NO SIGNIFICANT CHANGE WAS FOUND Confirmed by DONITA ALTAMIRANO MD ([id number]) on 02/16/2018 1:30:00 PM Referred By: Confirmed By:DONITA ALTAMIRANO MD
[2018-02-16] MEDS: NICOTINE POLACRILEX 2 MG GUM BUC PRN (17:34)
[2018-02-16] MEDS: MELATONIN 5 MG TABLETS PO PRN (22:24)
[2018-02-17] MEDS: PRENATAL VITAMINS W/ FOLIC ACID TABLET (FP) PO SCH (09:12)
[2018-02-17] MEDS: diazePAM 5 MG TABLET PO PRN ×3 (09:12→22:22)
[2018-02-17] MEDS: NICOTINE 14 MG/24 HOURS TOPICAL PATCH TD SCH (09:13)
[2018-02-17] MEDS ORDERED: METHADONE HCL 5 MG TABLET (FOR DETOX USE ONLY) PO ONE (10:00)
--- NOTE | 2018-02-17 11:25 | PN ---
BHS COWS - Scale Resting Pulse: 0= [place] 80 or Below Sweatin= Chills/Flushing Restless Observation: 1= Difficult to Sit Still Pupil Size: 1= Pupils >than Normal Bone or Joint Aches: 2= Severe Diffuse Aches Runny Nose/ Eye Tearin= Nasal Congestion GI Upset > 30mins: 1= Stomach Cramp Tremor Observation of Outstretched Hands: 2= Slight Tremor Visible Yawning Observation: 2= >3x During Session Anxiety or Irritability: 2=Irritable/Anxious Goose Flesh Skin: 0=Smooth Skin COWS Score: 13 BHS Progress Note (SOAP) Subjective: joint pain body ache sweat tremor restlessness irritable Objective: 02/17/18 11:24 Vital Signs Temperature 97.3 F L 02/17/18 10:41 Pulse Rate 56 L 02/17/18 10:41 Respiratory Rate 18 02/17/18 10:41 Blood Pressure 114/66 02/17/18 10:41 O2 Sat by Pulse Oximetry (%) Laboratory Last Values WBC 7.2 K/mm3 (4.0-10.0) 02/16/18 07:30 RBC 4.65 M/mm3 (4.00-5.60) 02/16/18 07:30 Hgb 12.6 GM/dL (11.7-16.9) 02/16/18 07:30 Hct 37.9 % (35.4-49) 02/16/18 07:30 MCV 81.3 fl (80-96) 02/16/18 07:30 MCH 27.0 pg (25.7-33.7) 02/16/18 07:30 MCHC 33.2 g/dl (32.0-35.9) 02/16/18 07:30 RDW 13.6 % (11.9-15.9) 02/16/18 07:30 Plt Count 259 K/MM3 (134-434) D 02/16/18 07:30 MPV 9.0 fl (7.5-11.1) 02/16/18 07:30 Sodium 142 mmol/L (136-145) 02/16/18 07:30 Potassium 4.2 mmol/L (3.5-5.1) 02/16/18 07:30 Chloride 106 mmol/L (98-107) 02/16/18 07:30 Carbon Dioxide 29 mmol/L (21-32) 02/16/18 07:30 Anion Gap 7 (8-16) L 02/16/18 07:30 BUN 10 mg/dL (7-18) 02/16/18 07:30 Creatinine 1.0 mg/dL (0.7-1.3) 02/16/18 07:30 Creat Clearance w eGFR > 60 (>60) 02/16/18 07:30 Random Glucose 87 mg/dL (74-106) 02/16/18 07:30 Calcium 8.8 mg/dL (8.5-10.1) 02/16/18 07:30 Total Bilirubin 0.2 mg/dL (0.2-1.0) D 02/16/18 07:30 AST 16 U/L (15-37) 02/16/18 07:30 ALT 21 U/L (12-78) D 02/16/18 07:30 Alkaline Phosphatase 72 U/L (45-117) 02/16/18 07:30 Total Protein 6.7 g/dl (6.4-8.2) 02/16/18 07:30 Albumin 3.2 g/dl (3.4-5.0) L 02/16/18 07:30 Urine Color [place] 02/15/18 23:23 Urine Appearance Slcloudy 02/15/18 23:23 Urine pH 5.0 (5.0-8.0) 02/15/18 23:23 Ur Specific [place] 1.030 (1.001-1.035) 02/15/18 23:23 Urine Protein Negative (NEGATIVE) 02/15/18 23:23 Urine Glucose (UA) Negative (NEGATIVE) 02/15/18 23:23 Urine Ketones Negative (NEGATIVE) 02/15/18 23:23 Urine Blood Negative (NEGATIVE) 02/15/18 23:23 Urine Nitrite Negative (NEGATIVE) 02/15/18 23:23 Urine Bilirubin Negative (<2.0 mg/dL) 02/15/18 23:23 Urine Urobilinogen 2.0 mg/dL (0.2-1.0) 02/15/18 23:23 Ur Leukocyte Esterase Negative (NEGATIVE) 02/15/18 23:23 RPR Titer Nonreactive (NONREACTIVE) 02/16/18 07:30 lab noted Assessment: 02/17/18 11:25 withdrawal sx Plan: continue detox
[2018-02-17] MEDS: NICOTINE POLACRILEX 2 MG GUM BUC PRN (12:44)
[2018-02-17] MEDS: MELATONIN 5 MG TABLETS PO PRN (22:22)
[2018-02-17] MEDS: THIAMINE HCL 100 MG TABLET (FP) PO SCH (22:22)
--- NOTE | 2018-02-18 09:47 | PN ---
BHS Progress Note (SOAP) Subjective: sweat tremor joint pain body ache irritable restlessness Objective: 02/18/18 09:46 Vital Signs Temperature 97.3 F L 02/18/18 09:12 Pulse Rate 60 02/18/18 09:12 Respiratory Rate 19 02/18/18 09:12 Blood Pressure 105/58 02/18/18 09:12 O2 Sat by Pulse Oximetry (%) Laboratory Last Values WBC 7.2 K/mm3 (4.0-10.0) 02/16/18 07:30 RBC 4.65 M/mm3 (4.00-5.60) 02/16/18 07:30 Hgb 12.6 GM/dL (11.7-16.9) 02/16/18 07:30 Hct 37.9 % (35.4-49) 02/16/18 07:30 MCV 81.3 fl (80-96) 02/16/18 07:30 MCH 27.0 pg (25.7-33.7) 02/16/18 07:30 MCHC 33.2 g/dl (32.0-35.9) 02/16/18 07:30 RDW 13.6 % (11.9-15.9) 02/16/18 07:30 Plt Count 259 K/MM3 (134-434) D 02/16/18 07:30 MPV 9.0 fl (7.5-11.1) 02/16/18 07:30 Sodium 142 mmol/L (136-145) 02/16/18 07:30 Potassium 4.2 mmol/L (3.5-5.1) 02/16/18 07:30 Chloride 106 mmol/L (98-107) 02/16/18 07:30 Carbon Dioxide 29 mmol/L (21-32) 02/16/18 07:30 Anion Gap 7 (8-16) L 02/16/18 07:30 BUN 10 mg/dL (7-18) 02/16/18 07:30 Creatinine 1.0 mg/dL (0.7-1.3) 02/16/18 07:30 Creat Clearance w eGFR > 60 (>60) 02/16/18 07:30 Random Glucose 87 mg/dL (74-106) 02/16/18 07:30 Calcium 8.8 mg/dL (8.5-10.1) 02/16/18 07:30 Total Bilirubin 0.2 mg/dL (0.2-1.0) D 02/16/18 07:30 AST 16 U/L (15-37) 02/16/18 07:30 ALT 21 U/L (12-78) D 02/16/18 07:30 Alkaline Phosphatase 72 U/L (45-117) 02/16/18 07:30 Total Protein 6.7 g/dl (6.4-8.2) 02/16/18 07:30 Albumin 3.2 g/dl (3.4-5.0) L 02/16/18 07:30 Urine Color [place] 02/15/18 23:23 Urine Appearance Slcloudy 02/15/18 23:23 Urine pH 5.0 (5.0-8.0) 02/15/18 23:23 Ur Specific [place] 1.030 (1.001-1.035) 02/15/18 23:23 Urine Protein Negative (NEGATIVE) 02/15/18 23:23 Urine Glucose (UA) Negative (NEGATIVE) 02/15/18 23:23 Urine Ketones Negative (NEGATIVE) 02/15/18 23:23 Urine Blood Negative (NEGATIVE) 02/15/18 23:23 Urine Nitrite Negative (NEGATIVE) 02/15/18 23:23 Urine Bilirubin Negative (<2.0 mg/dL) 02/15/18 23:23 Urine Urobilinogen 2.0 mg/dL (0.2-1.0) 02/15/18 23:23 Ur Leukocyte Esterase Negative (NEGATIVE) 02/15/18 23:23 RPR Titer Nonreactive (NONREACTIVE) 02/16/18 07:30 lab noted Assessment: 02/18/18 09:47 withdrawal sx Plan: continue detox
[2018-02-18] MEDS ORDERED: METHADONE HCL 5 MG TABLET (FOR DETOX USE ONLY) PO ONE (10:00)
[2018-02-18] MEDS: PRENATAL VITAMINS W/ FOLIC ACID TABLET (FP) PO SCH (10:48)
[2018-02-18] MEDS: NICOTINE 14 MG/24 HOURS TOPICAL PATCH TD SCH (10:49)
[2018-02-18] MEDS: diazePAM 5 MG TABLET PO PRN (10:52)
[2018-02-18 13:47] VITALS: BP 133/63; PULSE 79; TEMP 98.1
--- NOTE | 2018-02-18 16:16 | DS ---
[facility] Detox Discharge Summary Admission Date: 02/15/18 Discharge Date: 02/18/18 - History Present History: Opioid Dependence Additional Comments: 27 years old male admitted 02/15/18 for opiate withdrawal s patient insists to terminate opiate detox regimen due to "family emergency" patient is alert oriented x 3 no acute distress patient met with the counselor and medical provider that the patient wants to leave the detox facility for "family emergency" encourage the patient to attend community self help groups and addiction self management meetings - Physical Exam Results Vital Signs: Vital Signs Temperature 98.1 F 02/18/18 13:46 Pulse Rate 79 02/18/18 13:46 Respiratory Rate 18 02/18/18 13:46 Blood Pressure 133/63 02/18/18 13:46 O2 Sat by Pulse Oximetry (%) Pertinent Admission Physical Exam Findings: withdrawal sx Vital Signs Temperature 98.1 F 02/18/18 13:46 Pulse Rate 79 02/18/18 13:46 Respiratory Rate 18 02/18/18 13:46 Blood Pressure 133/63 02/18/18 13:46 O2 Sat by Pulse Oximetry (%) Laboratory Last Values WBC 7.2 K/mm3 (4.0-10.0) 02/16/18 07:30 RBC 4.65 M/mm3 (4.00-5.60) 02/16/18 07:30 Hgb 12.6 GM/dL (11.7-16.9) 02/16/18 07:30 Hct 37.9 % (35.4-49) 02/16/18 07:30 MCV 81.3 fl (80-96) 02/16/18 07:30 MCH 27.0 pg (25.7-33.7) 02/16/18 07:30 MCHC 33.2 g/dl (32.0-35.9) 02/16/18 07:30 RDW 13.6 % (11.9-15.9) 02/16/18 07:30 Plt Count 259 K/MM3 (134-434) D 02/16/18 07:30 MPV 9.0 fl (7.5-11.1) 02/16/18 07:30 Sodium 142 mmol/L (136-145) 02/16/18 07:30 Potassium 4.2 mmol/L (3.5-5.1) 02/16/18 07:30 Chloride 106 mmol/L (98-107) 02/16/18 07:30 Carbon Dioxide 29 mmol/L (21-32) 02/16/18 07:30 Anion Gap 7 (8-16) L 02/16/18 07:30 BUN 10 mg/dL (7-18) 02/16/18 07:30 Creatinine 1.0 mg/dL (0.7-1.3) 02/16/18 07:30 Creat Clearance w eGFR > 60 (>60) 02/16/18 07:30 Random Glucose 87 mg/dL (74-106) 02/16/18 07:30 Calcium 8.8 mg/dL (8.5-10.1) 02/16/18 07:30 Total Bilirubin 0.2 mg/dL (0.2-1.0) D 02/16/18 07:30 AST 16 U/L (15-37) 02/16/18 07:30 ALT 21 U/L (12-78) D 02/16/18 07:30 Alkaline Phosphatase 72 U/L (45-117) 02/16/18 07:30 Total Protein 6.7 g/dl (6.4-8.2) 02/16/18 07:30 Albumin 3.2 g/dl (3.4-5.0) L 02/16/18 07:30 Urine Color [place] 02/15/18 23:23 Urine Appearance Slcloudy 02/15/18 23:23 Urine pH 5.0 (5.0-8.0) 02/15/18 23:23 Ur Specific [place] 1.030 (1.001-1.035) 02/15/18 23:23 Urine Protein Negative (NEGATIVE) 02/15/18 23:23 Urine Glucose (UA) Negative (NEGATIVE) 02/15/18 23:23 Urine Ketones Negative (NEGATIVE) 02/15/18 23:23 Urine Blood Negative (NEGATIVE) 02/15/18 23:23 Urine Nitrite Negative (NEGATIVE) 02/15/18 23:23 Urine Bilirubin Negative (<2.0 mg/dL) 02/15/18 23:23 Urine Urobilinogen 2.0 mg/dL (0.2-1.0) 02/15/18 23:23 Ur Leukocyte Esterase Negative (NEGATIVE) 02/15/18 23:23 RPR Titer Nonreactive (NONREACTIVE) 02/16/18 07:30 lab noted - Treatment Hospital Course: Detox Protocol Followed, Responded well Patient has Accepted a Rehab Referral to: community self support meetings - Medication Discharge Medications: Ambulatory Orders NK [No Known Home Medication] 10/21/17 - Diagnosis (1) Opioid dependence with withdrawal Current Visit: Yes Status: Acute (2) Nicotine dependence Current Visit: Yes Status: Acute Qualifiers: Nicotine product type: cigarettes Substance use status: in withdrawal Qualified Code(s): F17.213 - Nicotine dependence, cigarettes, with withdrawal - AMA Did Patient Leave Against Medical Advice: Yes
[2018-02-19] MEDS ORDERED: METHADONE HCL 10 MG TABLET (FOR DETOX USE ONLY) PO ONE (10:00)
[2018-02-20] MEDS ORDERED: METHADONE HCL 5 MG TABLET (FOR DETOX USE ONLY) PO ONE (06:00)
== END 2018-02-18 16:37 | disposition left against medical advice (07) | DRG 770 ==
LOC: YASAS 15:45 → Y6N 22:36
PROVIDERS: ADMIT Surgery; ATTEND Surgery
PROC: HZ2ZZZZ Detoxification Services for Substance Abuse Treatment (ICD-10-PCS; principal; 2018-02-15)
DX: F11.23 Opioid dependence with withdrawal (principal); F14.20 Cocaine dependence, uncomplicated; F12.20 Cannabis dependence, uncomplicated; F17.213 Nicotine dependence, cigarettes, with withdrawal; F41.1 Generalized anxiety disorder; F32.9 Major depressive disorder, single episode, unspecified; F41.0 Panic disorder [episodic paroxysmal anxiety]; G40.509 Epileptic seizures related to external causes, not intractable, without status epilepticus; R60.0 Localized edema; G47.00 Insomnia, unspecified
CPT/HCPCS: 36415; 80053; 81003; 85027; 86593; 93005; 93010